=== PATIENT | female | born 1995 | race Hispanic/Latino ===

== ENCOUNTER 2018-02-02 03:55 | Emergency (ER) | payer OTHER ==
--- NOTE | 2018-02-02 04:58 | EDPHYS ---
Physician Documentation [facility] Name: Mary Blackwell Age: 22 yrs Sex: Female : 1995 Arrival Date: 02/02/2018 Time: 03:56 Bed 14 Private MD: ED Physician Sammy Gray HPI: 02/02 04:53 This 22 yrs old Female presents to ER via Ambulatory with complaints of Sore wa Throat, Fever, 6 Wks Preg. 04:53 The patient presents with sore throat. The patient describes throat pain as constant. wa Onset: The symptoms/episode began/occurred 3 day(s) ago. Severity of symptoms: At their worst the symptoms were moderate, in the emergency department the symptoms are actually worse. Modifying factors: The symptoms are alleviated by nothing, the symptoms are aggravated by swallowing. Associated signs and symptoms: Pertinent positives: chills, Pertinent negatives rhinorrhea, shortness of breath. The patient has not experienced similar symptoms in the past. The patient has not recently seen a physician. states 6 weeks preg. 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 - Social history:: Smoking status: Patient/guardian denies using tobacco. - Ebola Screening: : No symptoms or risks identified at this time. - Family history:: not pertinent. - Hospitalizations: : No recent hospitalization is reported. ROS: 04:54 Eyes: Negative for injury, pain, redness, and discharge, Neck: Negative for injury, wa pain, and swelling, Cardiovascular: Negative for chest pain, palpitations, and edema, Respiratory: Negative for shortness of breath, cough, wheezing, and pleuritic chest pain, Abdomen/GI: Negative for abdominal pain, nausea, vomiting, diarrhea, and constipation, Back: Negative for injury and pain, : Negative for injury, bleeding, discharge, and swelling, MS/Extremity: Negative for injury and deformity, Skin: Negative for injury, rash, and discoloration, Neuro: Negative for headache, weakness, numbness, tingling, and seizure, Psych: Negative for depression, anxiety, suicide ideation, homicidal ideation, and hallucinations. 04:54 Constitutional: Positive for body aches, chills. 04:54 ENT: Positive for sore throat, Negative for ear pain, rhinorrhea, sinus congestion. Exam: 04:55 Constitutional: This is a well developed, well nourished patient who is awake, alert, wa and in no acute distress. Head/Face: Normocephalic, atraumatic. Eyes: Pupils equal round and reactive to light, extra-ocular motions intact. Lids and lashes normal. Conjunctiva and sclera are non-icteric and not injected. Cornea within normal limits. Periorbital areas with no swelling, redness, or edema. Neck: Trachea midline, no thyromegaly or masses palpated, and no cervical lymphadenopathy. Supple, full range of motion without nuchal rigidity, or vertebral point tenderness. No Meningismus. Chest/axilla: Normal chest wall appearance and motion. Nontender with no deformity. No lesions are appreciated. Cardiovascular: Regular rate and rhythm with a normal S1 and S2. No gallops, murmurs, or rubs. Normal PMI, no JVD. No pulse deficits. Respiratory: Lungs have equal breath sounds bilaterally, clear to auscultation and percussion. No rales, rhonchi or wheezes noted. No increased work of breathing, no retractions or nasal flaring. Abdomen/GI: Soft, non-tender, with normal bowel sounds. No distension or tympany. No guarding or rebound. No evidence of tenderness throughout. Back: No spinal tenderness. No costovertebral tenderness. Full range of motion. Skin: Warm, dry with normal turgor. Normal color with no rashes, no lesions, and no evidence of cellulitis. MS/ Extremity: Pulses equal, no cyanosis. Neurovascular intact. Full, normal range of motion. Neuro: Awake and alert, GCS 15, oriented to person, place, time, and situation. Cranial nerves II-XII grossly intact. Motor strength 5/5 in all extremities. Sensory grossly intact. Cerebellar exam normal. Normal gait. Psych: Awake, alert, with orientation to person, place and time. Behavior, mood, and affect are within normal limits. 04:55 ENT: Posterior pharynx: erythema, exudate, that is mild. Vital Signs: 04:10 BP 115 / 87; Pulse 88; Resp 18; Temp 98.3(O); Pulse Ox 99% on R/A; Weight 58.97 kg; tl2 Height 5 ft. 5 in. (165.10 cm); Pain 7/10; 05:08 BP 99 / 73; Pulse 94; Resp 16; Temp 97.8(O); Pulse Ox 100% on R/A; tl2 04:10 Body Mass Index 21.63 (58.97 kg, 165.10 cm) tl2 MDM: 04:07 Patient medically screened. wa 04:55 Differential diagnosis: sore throat. possibly bacterial in origin. will treat wa empirically. Data reviewed: vital signs, nurses notes. Response to treatment: the patient's symptoms have markedly improved after treatment. Administered Medications: 05:08 Drug: Tylenol 500 mg Route: PO; tl2 05:11 Follow up: Response: No adverse reaction; Medication administered at discharge. tl2 05:08 Drug: Rocephin (cefTRIAXone) 1 grams Route: IM; Site: right gluteus; tl2 05:21 Follow up: Response: No adverse reaction jd3 Disposition: 02/02/18 04:57 Discharged to Home. Impression: Acute Pharyngitis. - Condition is Stable. - Discharge Instructions: Pharyngitis, [id number]. - Prescriptions for Augmentin 875- 125 mg Oral Tablet - take 1 tablet by ORAL route every 12 hours for 5 days; 10 tablet. - Medication Reconciliation Form, Thank You Letter, Antibiotic Education, Prescription Opioid Use form. - Follow up: Private Physician; When: 2 - 3 days; Reason: Recheck today's complaints. - Problem is new. - Symptoms have improved. - Notes: take tylenol for pain as needed. see your doctor for reassessment if your pain is not improved or worsen within 2-3 days Signatures: Evelyne Watson RN RN tl2 Sammy Gray MD MD wa Davies, Jonathon, RN RN jd3 Corrections: (The following items were deleted from the chart) 05:21 04:57 02/02/2018 04:57 Discharged to Home. Impression: Acute Pharyngitis. Condition is jd3 Stable. Forms are Medication Reconciliation Form, Thank You Letter, Antibiotic Education, Prescription Opioid Use. Follow up: Private Physician; When: 2 - 3 days; Reason: Recheck today's complaints. Problem is new. Symptoms have improved. [email or web address]
--- NOTE | 2018-02-02 04:58 | ER ---
Nurse's Notes [facility] Name: Mary Blackwell Age: 22 yrs Sex: Female : 1995 Arrival Date: 02/02/2018 Time: 03:56 Bed 14 Private MD: Diagnosis: Acute Pharyngitis Presentation: 02/02 04:08 Presenting complaint: Patient states: Vomiting and chills started on Monday, resolved. tl2 Sore throat since Monday with fever. Took Tylenol 30 minutes ago. Denies any abdominal cramping or vaginal bleeding. Transition of care: patient was not received from another setting of care. Onset of symptoms was January 30, 2018. Risk Assessment: Do you want to hurt yourself or someone else? Patient reports no desire to harm self or others. Initial Sepsis Screen: Does the patient meet any 2 criteria? No. Patient's initial sepsis screen is negative. Does the patient have a suspected source of infection? No. Patient's initial sepsis screen is negative. Care prior to arrival: None. 04:08 Method Of Arrival: Ambulatory tl2 04:08 Acuity: MILLICENT 4 tl2 Triage Assessment: 04:10 General: Appears in no apparent distress. uncomfortable, Behavior is calm, cooperative, tl2 appropriate for age. Pain: Complains of pain in throat Pain currently is 7 out of 10 on a pain scale. Quality of pain is described as sharp. EENT: Throat is reddened. Neuro: Level of Consciousness is awake, alert, obeys commands, Oriented to person, place, time, situation. Cardiovascular: Denies chest pain. Respiratory: Airway is patent Respiratory effort is even, unlabored, Respiratory pattern is regular, symmetrical. GI: Reports nausea. : Denies vaginal bleeding. Derm: Skin is pink, warm \T\ dry. 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 - Social history:: Smoking status: Patient/guardian denies using tobacco. - Ebola Screening: : No symptoms or risks identified at this time. - Family history:: not pertinent. - Hospitalizations: : No recent hospitalization is reported. Screenin:13 Abuse screen: Denies threats or abuse. Nutritional screening: No deficits noted. tl2 Tuberculosis screening: No symptoms or risk factors identified. Fall Risk None identified. Assessment: 04:13 General: see triage assessment. tl2 05:08 Reassessment: Patient appears in no apparent distress at this time. Patient and/or tl2 family updated on plan of care and expected duration. Pain level reassessed. Patient is alert, oriented x 3, equal unlabored respirations, skin warm/dry/pink. Pt verbalized understanding of discharge instructions, need for follow up and prescription usage. Will monitor for 15 minutes after Rocephin administration. Vital Signs: 04:10 BP 115 / 87; Pulse 88; Resp 18; Temp 98.3(O); Pulse Ox 99% on R/A; Weight 58.97 kg; tl2 Height 5 ft. 5 in. (165.10 cm); Pain 7/10; 05:08 BP 99 / 73; Pulse 94; Resp 16; Temp 97.8(O); Pulse Ox 100% on R/A; tl2 04:10 Body Mass Index 21.63 (58.97 kg, 165.10 cm) tl2 ED Course: 03:56 Patient arrived in ED. ds1 04:07 Sammy Gray MD is Attending Physician. wa 04:08 Evelyne Watson, DOROTHEA is Primary Nurse. tl2 04:10 Triage completed. tl2 04:10 Arm band placed on right wrist. tl2 04:13 Patient has correct armband on for positive identification. Bed in low position. Call tl2 light in reach. Side rails up X 1. Adult w/ patient. 05:08 No provider procedures requiring assistance completed. Patient did not have IV access tl2 during this emergency room visit. Administered Medications: 05:08 Drug: Tylenol 500 mg Route: PO; tl2 05:11 Follow up: Response: No adverse reaction; Medication administered at discharge. tl2 05:08 Drug: Rocephin (cefTRIAXone) 1 grams Route: IM; Site: right gluteus; tl2 05:21 Follow up: Response: No adverse reaction jd3 Outcome: 04:57 Discharge ordered by . il 05:08 Discharged to home ambulatory, with family. tl2 05:08 Condition: stable 05:08 Discharge instructions given to patient, Instructed on discharge instructions, follow up and referral plans. medication usage, Demonstrated understanding of instructions, follow-up care, medications, Prescriptions given X 1. 05:21 Patient left the ED. jd3 Signatures: Connie Rader ds1 Evelyne Watson, RN RN tl2 Sammy Gray MD MD wa Davies, Jonathon, RN RN jd3 Corrections: (The following items were deleted from the chart) 05:10 05:08 Reassessment: Patient appears in no apparent distress at this time. Patient tl2 and/or family updated on plan of care and expected duration. Pain level reassessed. Patient is alert, oriented x 3, equal unlabored respirations, skin warm/dry/pink. Pt verbalized understanding of discharge instructions, need for follow up and prescription usage tl2
[2018-02-02] MEDS ORDERED: WATER FOR INJ,STERILE 10 ML ONE (05:04)
[2018-02-02] MEDS ORDERED: CEFTRIAXONE 1000 MG/VIAL ONE (05:04)
[2018-02-02] MEDS ORDERED: ACETAMINOPHEN 500 MG TAB ONE (05:04)
[2018-02-02 05:29] VITALS: BP 99/73; TEMP 97.8; O2SAT 100
== END 2018-02-02 05:21 | disposition home or self-care (01) ==
LOC: ER 03:55
DX: J02.9 Acute pharyngitis, unspecified (principal)
CPT/HCPCS: 96372; 99283

== ENCOUNTER 2018-09-11 21:16 | Emergency (ER) | payer OTHER ==
--- NOTE | 2018-09-11 22:05 | ER ---
Nurse's Notes [facility] Name: Mary Blackwell Age: 23 yrs Sex: Female : 1995 Arrival Date: 09/11/2018 Time: 21:20 Bed 2 Private MD: Diagnosis: Dizziness and giddiness;Hyperventilation; related conditions, unspecified, third trimester Presentation: 09/11 21:55 Presenting complaint: Patient states: She was cleaning around the house when she lp1 suddenly became light headed, felt like she was going to pass out, numbness in hands, blurred vision; Patient is 39 weeks ; States symptoms have resolved at this time, but continues to have headache. Transition of care: patient was not received from another setting of care. Onset of symptoms was September 11, 2018. Risk Assessment: Do you want to hurt yourself or someone else? Patient reports no desire to harm self or others. Initial Sepsis Screen: Does the patient meet any 2 criteria? No. Patient's initial sepsis screen is negative. Does the patient have a suspected source of infection? No. Patient's initial sepsis screen is negative. Care prior to arrival: None. 21:55 Method Of Arrival: Ambulatory lp1 21:55 Acuity: MILLICENT 3 lp1 Historical: - Allergies: 21:56 No Known Allergies; lp1 - Home Meds: 21:56 None [Active]; lp1 - PMHx: 21:56 None; lp1 - PSHx: 21:56 None; lp1 - Immunization history:: Adult Immunizations up to date. - Social history:: Smoking status: Patient/guardian denies using tobacco. - Ebola Screening: : No symptoms or risks identified at this time. - Family history:: not pertinent. Screenin:00 Abuse screen: Denies threats or abuse. Denies injuries from another. Nutritional aa1 screening: No deficits noted. Tuberculosis screening: No symptoms or risk factors identified. Fall Risk None identified. Assessment: 22:00 General: Appears in no apparent distress. comfortable, Behavior is calm, cooperative, aa1 appropriate for age. Pain: Denies pain. Neuro: Level of Consciousness is awake, alert, obeys commands, Oriented to person, place, time, situation, Moves all extremities. 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 Cardiovascular: Denies chest pain, lightheadedness, shortness of breath, Heart tones S1 S2 present Rhythm is regular. Respiratory: Airway is patent Respiratory effort is even, unlabored, Respiratory pattern is regular, symmetrical. GI: No signs and/or symptoms were reported involving the gastrointestinal system. : No signs and/or symptoms were reported regarding the genitourinary system. EENT: No signs and/or symptoms were reported regarding the EENT system. Derm: Skin is intact, is healthy with good turgor, Skin is pink, warm \T\ dry. Musculoskeletal: Circulation, motion, and sensation intact. Capillary refill < 3 seconds. 22:23 Reassessment: Patient appears in no apparent distress at this time. Patient is alert, aa1 oriented x 3, equal unlabored respirations, skin warm/dry/pink. Discussed d/c \T\ f/u instructions with pt \T\ spouse; denies questions or concerns at this time Patient denies pain at this time. Vital Signs: 21:53 BP 110 / 89; Pulse 70; Resp 18; Pulse Ox 100% on R/A; Weight 65.77 kg; Height 5 ft. 2 lp1 in. (157.48 cm); Pain 0/10; 21:53 BP 113 / 83 Supine; Pulse 66; lp1 21:53 BP 119 / 81 Sitting; Pulse 67; lp1 21:53 BP 105 / 80 Standing; Pulse 91; lp1 21:53 Temp 98.1; aa1 21:53 Body Mass Index 26.52 (65.77 kg, 157.48 cm) lp1 Vitals: 22:10 Heart Tones 156. aa1 ED Course: 21:20 Patient arrived in ED. ds1 21:35 Russel Last MD is Attending Physician. rola 21:56 Triage completed. lp1 21:56 Arm band placed on left wrist. lp1 22:00 Patient has correct armband on for positive identification. Bed in low position. Call aa1 light in reach. Pulse ox on. NIBP on. 22:01 Aracelis Presley RN is Primary Nurse. aa1 22:05 Diet: Patient given juice. Tolerated well. aa1 22:23 No provider procedures requiring assistance completed. Patient did not have IV access aa1 during this emergency room visit. Administered Medications: No medications were administered Outcome: 22:04 Discharge ordered by . rola 22:23 Discharged to home ambulatory, with significant other. aa1 22:23 Condition: good 22:23 Discharge instructions given to patient, significant other, Instructed on discharge instructions, follow up and referral plans. Demonstrated understanding of instructions, follow-up care. 22:25 Patient left the ED. aa1 Signatures: Aracelis Presley RN RN aa1 Russel Last MD MD cha Sanford, Demi ds1 Maxine Malone, DOROTHEA RN lp1
--- NOTE | 2018-09-11 22:06 | EDPHYS ---
Physician Documentation [facility] Name: Mary Blackwell Age: 23 yrs Sex: Female : 1995 Arrival Date: 09/11/2018 Time: 21:20 Bed 2 Private MD: ED Physician Russel Last HPI: 09/11 21:57 This 23 yrs old Female presents to ER via Ambulatory with complaints of rola Dizziness, Numbness Of Hand, Blurred Vision, 38 Wks Preg. 21:57 The patient presents with dizziness. Onset: The symptoms/episode began/occurred just rola prior to arrival. Context: occurred at home. Modifying factors: The symptoms are alleviated by lying down, the symptoms are aggravated by standing up, changing position. Associated signs and symptoms: Pertinent positives: blurred vision, tingling. Severity of symptoms: At their worst the symptoms were mild moderate in the emergency department the symptoms have improved markedly. Patient's baseline: Neuro: alert and fully oriented. The patient has experienced similar episodes in the past, a few times. Historical: - Allergies: 21:56 No Known Allergies; lp1 - Home Meds: 21:56 None [Active]; lp1 - PMHx: 21:56 None; lp1 - PSHx: 21:56 None; lp1 - Immunization history:: Adult Immunizations up to date. - Social history:: Smoking status: Patient/guardian denies using tobacco. - Ebola Screening: : No symptoms or risks identified at this time. - Family history:: not pertinent. ROS: 21:57 Constitutional: Negative for fever, chills, and weight loss, Eyes: Negative for injury, rola pain, redness, and discharge, ENT: Negative for injury, pain, and discharge, Neck: Negative for injury, pain, and swelling, Cardiovascular: Negative for chest pain, palpitations, and edema, Respiratory: Negative for shortness of breath, cough, wheezing, and pleuritic chest pain, Abdomen/GI: Negative for abdominal pain, nausea, vomiting, diarrhea, and constipation, Back: Negative for injury and pain, Skin: Negative for injury, rash, and discoloration, Neuro: Negative for headache, weakness, numbness, tingling, and seizure, Psych: Negative for depression, anxiety, suicide ideation, homicidal ideation, and hallucinations, Allergy/Immunology: Negative for hives, rash, and allergies, Endocrine: Negative for neck swelling, polydipsia, polyuria, polyphagia, and marked weight changes. 21:57 Abdomen/GI: Positive for abdominal distension. 21:57 : Positive for 21:57 MS/extremity: Negative for acute changes. Exam: 21:57 Constitutional: This is a well developed, well nourished patient who is awake, alert, rola and in no acute distress. Head/Face: Normocephalic, atraumatic. Eyes: Pupils equal round and reactive to light, extra-ocular motions intact. Lids and lashes normal. Conjunctiva and sclera are non-icteric and not injected. Cornea within normal limits. Periorbital areas with no swelling, redness, or edema. ENT: Nares patent. No nasal discharge, no septal abnormalities noted. Tympanic membranes are normal and external auditory canals are clear. Oropharynx with no redness, swelling, or masses, exudates, or evidence of obstruction, uvula midline. Mucous membranes moist. Neck: Trachea midline, no thyromegaly or masses palpated, and no cervical lymphadenopathy. Supple, full range of motion without nuchal rigidity, or vertebral point tenderness. No Meningismus. Chest/axilla: Normal chest wall appearance and motion. Nontender with no deformity. No lesions are appreciated. Cardiovascular: Regular rate and rhythm with a normal S1 and S2. No gallops, murmurs, or rubs. Normal PMI, no JVD. No pulse deficits. Respiratory: Lungs have equal breath sounds bilaterally, clear to auscultation and percussion. No rales, rhonchi or wheezes noted. No increased work of breathing, no retractions or nasal flaring. Back: No spinal tenderness. No costovertebral tenderness. Full range of motion. Female : Normal external genitalia. Skin: Warm, dry with normal turgor. Normal color with no rashes, no lesions, and no evidence of cellulitis. MS/ Extremity: Pulses equal, no cyanosis. Neurovascular intact. Full, normal range of motion. Neuro: Awake and alert, GCS 15, oriented to person, place, time, and situation. Cranial nerves II-XII grossly intact. Motor strength 5/5 in all extremities. Sensory grossly intact. Cerebellar exam normal. Normal gait. Psych: Awake, alert, with orientation to person, place and time. Behavior, mood, and affect are within normal limits. 21:57 Abdomen/GI: Inspection: gravid appearance, Liver: no appreciated palpable abnormalities, Hernia: not appreciated. 22:04 Musculoskeletal/extremity: DVT Exam: No signs of deep vein thrombosis. no pain, no rola swelling, no tenderness, negative Homans' sign noted on exam, no appreciated bluish discoloration, no erythema, no increased warmth. Vital Signs: 21:53 BP 110 / 89; Pulse 70; Resp 18; Pulse Ox 100% on R/A; Weight 65.77 kg; Height 5 ft. 2 lp1 in. (157.48 cm); Pain 0/10; 21:53 BP 113 / 83 Supine; Pulse 66; lp1 21:53 BP 119 / 81 Sitting; Pulse 67; lp1 21:53 BP 105 / 80 Standing; Pulse 91; lp1 21:53 Temp 98.1; aa1 21:53 Body Mass Index 26.52 (65.77 kg, 157.48 cm) lp1 MDM: 21:35 Patient medically screened. [facility] 21:57 Data reviewed: vital signs, nurses notes, lab test result(s), urinalysis. [facility] 09/11 22:07 Order name: Urine Dipstick--Ancillary (enter results) ag4 09/11 21:57 Order name: FHT's; Complete Time: 22:11 [facility] 09/11 21:57 Order name: Urine Dipstick-Ancillary (obtain specimen); Complete Time: 22:01 [facility] 09/11 21:57 Order name: Orthostatics; Complete Time: 22:01 [facility] 09/11 21:57 Order name: PO challenge; Complete Time: 22:01 [facility] Administered Medications: No medications were administered Disposition: 09/11/18 22:04 Discharged to Home. Impression: Dizziness and giddiness, Hyperventilation, related conditions, unspecified, third trimester. - Condition is Stable. - Discharge Instructions: Dizziness, Hyperventilation, Third Trimester of , Cuwi-pt-Uxks, Dizziness, [id number]. - Medication Reconciliation Form, Thank You Letter, Antibiotic Education, Prescription Opioid Use form. - Follow up: Private Physician; When: 2 - 3 days; Reason: Recheck today's complaints, Continuance of care, Re-evaluation by your physician. - Problem is new. - Symptoms have improved. Signatures: Dispatcher [employer] EDAracelis Shannon RN RN aa1 Russel Last MD MD cha Pena, Laura RN RN lp1 Corrections: (The following items were deleted from the chart) 22:25 22:04 09/11/2018 22:04 Discharged to Home. Impression: Dizziness and giddiness; aa1 Hyperventilation; related conditions, unspecified, third trimester. Condition is Stable. Discharge Instructions: Dizziness, Hyperventilation, Third Trimester of , Weqe-oc-Micm, Dizziness, [id number]. Forms are Medication Reconciliation Form, Thank You Letter, Antibiotic Education, Prescription Opioid Use. Follow up: Private Physician; When: 2 - 3 days; Reason: Recheck today's complaints, Continuance of care, Re-evaluation by your physician. Problem is new. Symptoms have improved. rola
[2018-09-11 22:12] LABS: Urine Blood NEGATIVE (NEG); Urine Glucose NEGATIVE (NEG); Urine Protein NEGATIVE (NEG); Urine Specific Gravity 1.005 (1.005-1.030); Urine pH 6.5 (5.0-7.0)
[2018-09-11 22:45] VITALS: BP 105/80; TEMP 98.1; O2SAT 100
== END 2018-09-11 22:25 | disposition home or self-care (01) ==
LOC: ER 21:16
DX: O26.893 Other specified pregnancy related conditions, third trimester (principal); R42 Dizziness and giddiness; R06.4 Hyperventilation; Z3A.38 38 weeks gestation of pregnancy
CPT/HCPCS: 81003; 99283

== ENCOUNTER 2018-09-17 07:00 | Inpatient (IN) | payer OTHER ==
[2018-09-17] MEDS ORDERED: Ringers Lactate 1,000 ML IV PRN (07:09)
[2018-09-17] MEDS ORDERED: CARBOPROST TROME 250 MCG/ML IM PRN (07:09)
[2018-09-17] MEDS ORDERED: METHYLERGONOVINE 0.2MG/ML AMP IM PRN (07:09)
[2018-09-17] MEDS ORDERED: PROMETHAZINE 25 MG/ML VIAL IV PRN ×2 (07:09)
[2018-09-17] MEDS ORDERED: BUTORPHANOL 1 MG/ML INJ IV PRN (07:09)
[2018-09-17] MEDS ORDERED: PENICILLIN G POT 5 MU/100 ML BAG IV ONE (07:30)
[2018-09-17 07:51] LABS: RPR Titer ND
[2018-09-17 07:53] LABS: Urine Appearance CLOUDY; Urine Bilirubin NEGATIVE (NEG); Urine Blood NEGATIVE (NEG); Urine Color YELLOW; Urine Glucose NEGATIVE (NEG); Urine Protein NEGATIVE (NEG); Urine Specific Gravity 1.025 (1.005-1.030); Urine pH 6.5 (5.0-7.0)
[2018-09-17 07:58] LABS: Absolute Lymphocytes (CBC) 1.8 K/uL (0.7-4.9); Absolute Monocytes 0.4 K/uL (0.1-1.3); Absolute Neutrophil 4.8 K/uL (1.8-8.0); Basophils % 0.4 % (0-1.3); Eosinophils % 1.4 % (0-4.4); Hematocrit 28.6 % (36.0-45.0); Lymphocytes % 24.9 % (15.3-44.8); MPV 9.7 fL (7.6-11.3); Monocytes % 5.3 % (3.3-12.3); RBC Red Blood Cell Count 3.73 M/uL (3.86-4.86)
[2018-09-17] MEDS ORDERED: Ringers Lactate 1,000 ML IV SCH (08:00)
[2018-09-17] MEDS ORDERED: OXYTOCIN/LR 20 UNIT/1,000 ML BAG IV SCH (08:00)
[2018-09-17 08:01] LABS: Urine Microscopic Reflex ORDER UMIC
[2018-09-17 08:23] LABS: Urine Bacteria 20-50 /HPF (<20); Urine Culture Reflex Order NOT NEEDED; Urine RBC <5 /HPF (NONE SEEN)
[2018-09-17 08:56] VITALS: BMI 26.5
[2018-09-17] MEDS ORDERED: PENICILLIN 2.5 MU in NA CHLORIDE 0.9% 100 ML IV SCH (11:30)
[2018-09-17] MEDS ORDERED: LIDOCAINE 1% MPF 30 ML VIAL ONE (15:24)
[2018-09-17] MEDS ORDERED: ONDANSETRON 4 MG (ODT) TAB PO PRN (15:28)
[2018-09-17] MEDS ORDERED: DOCUSATE NA/SENNA CONC 1 TAB PO PRN (15:28)
[2018-09-17] MEDS ORDERED: ACETAMINOPHEN 500 MG TAB PO PRN (15:28)
[2018-09-17] MEDS ORDERED: BISACODYL 10 MG RECTAL SUPP RECT PRN (15:28)
[2018-09-17] MEDS ORDERED: Oxycodone HCl/Acetaminophen 1 TAB TAB PO PRN (15:28)
[2018-09-17] MEDS ORDERED: METHYLERGONOVINE 0.2 MG TAB PO PRN (15:28)
[2018-09-17] MEDS ORDERED: OXYTOCIN/LR 20 UNIT/1,000 ML BAG IV ONE (17:51)
[2018-09-17] MEDS ORDERED: Ringers Lactate 2,000 ML IV ONE (18:07)
[2018-09-17] MEDS ORDERED: KETOROLAC 30 MG/ML INJ IV PRN (18:20)
[2018-09-17] MEDS ORDERED: ONDANSETRON 4 MG/2 ML VIAL IV PRN (18:20)
[2018-09-17] MEDS ORDERED: KETOROLAC 30 MG/ML INJ ONE (18:34)
[2018-09-17] MEDS ORDERED: ONDANSETRON 4 MG/2 ML VIAL ONE (18:35)
--- NOTE | 2018-09-17 20:20 | P.OBGYNHP ---
Certification for Inpatient Patient admitted to: Inpatient With expected LOS: <2 Midnights Patient will require the following post-hospital care: None Practitioner: I am a practitioner with admitting privileges, knowledge of patient current condition, hospital course, and medical plan of care. Services: Services provided to patient in accordance with Admission requirements found in Title 42 Section 412.3 of the Code of Federal Regulations Patient History Date of Service: 09/17/18 Reason for admission: Induction of labor History of Present Illness: Patient is a 23 y/o at 39 weeks and 1 day gestation who presents for elective indcution of labor. Patient has obtained prental care wiht nh beginning at 8 weeks gestation. care is complicated by anemia. Non- invasive testing revealed low risk female infant. She has been non- compliant with her prental vitmains and iron supplementation. She has a h/o 4 prior vaginal deliveries. Allergies No Known Allergies Allergy (Verified 09/17/18 08:39) Home Medications: Vits W-Ca,Fe,FA(<1Mg) [] 1 each PO DAILY 09/26/11 - Past Medical/Surgical History Diabetic: No -: Anemia -: Vaginal Deliveries - 09/05/10, 09/26/11, and 05/22/15, 01/2017 - Family History Father -: Hypertension, Other (see notes) Notes: Thyroid problems - Social History Smoking Status: Never smoker Alcohol use: No CD- Drugs: No Caffeine use: Yes Place of Residence: Home Review of Systems 10-point ROS is otherwise unremarkable Physical Examination - Vital Signs Temperature: 97.3 F Blood Pressure: 117/71 Pulse: 75 Respirations: 18 - General General: Alert, Oriented x3, Mild distress HEENT: Atraumatic Neck: Supple Respiratory: Normal air movement Cardiovascular: No edema, Normal pulses Breasts: Normal configuration Musculoskeletal: No clubbing, No swelling Integumentary: No rashes, No breakdown Neurological: Normal gait, Normal speech - Female Pelvic External genitalia: Normal Vagina: Normal, [place], Moist Cervix: Dilation (3), Effacement (60), station (-3) Uterus: Gravid Adnexa: Unable to evaluate - Obstetrics heart rate tracing: Category 2 Contractions: Frequency (every 3-4 minutes) Amniotic membrane: AROM (clear fluid) Laboratory Data (last 24 hrs) 09/17/18 18:45: Hct 31.6 L 09/17/18 07:30: WBC 7.0, Hgb 9.2 L, Hct 28.6 L, Plt Count 139 L Microbiology Data (last 24 hrs): GBS positive Assessment and Plan - Plan Patient is a 23 y/o at 39 weeks and 1 day gestation who presents for elective induction of labor. GBS positive. Penicillin has been started for prophylaxis. Pitocin for labor augmentation. Patient declines epidural. Anticipate vaginal delivery. Continuous maternal monitoring. Discharge Plan: Home Plan to discharge in: 48 Hours - Advance Directives Does patient have a Living Will: No Does patient have a Durable POA for Healthcare: No
--- NOTE | 2018-09-17 20:45 | P.OP ---
Date of Service: 09/17/18 Findings and Operative Technique Patient delivered a viable female in cephalic presentation on 09/17/17 at . Once was delivered nose and mouth were suctioned with a suction bulb. Cord was clamped and cut and was placed on mother's abdomen for skin to skin bonding. Cord blood was then obtained. Placenta was then delivered with gentle traction and was examined and noted to be intact. Fundal massage was performed and uterus was found to be firm. A small laceration was noted at the introitus and this was repaired with a simple 3.0 vicryl suture. EBL was found to be 300cc. APGARS were 9/9 Weight was found to be 7 lb 7 ounces. Penicillin was given. First stage of labor was 6 hours and 10 minutes. Second stage of labor was 9 minutes. Both mom and baby are doing well. She is breast feeding.
[2018-09-18 01:12] LABS: RPR (Rapid Plasma Reagin) NON-REACT (NON-REACT)
[2018-09-18 04:53] LABS: Absolute Lymphocytes (CBC) 1.6 K/uL (0.7-4.9); Absolute Monocytes 0.9 K/uL (0.1-1.3); Basophils % 0.2 % (0-1.3); Eosinophils % 0.3 % (0-4.4); Hematocrit 23.3 % (36.0-45.0); Lymphocytes % 13.6 % (15.3-44.8); MPV 10.3 fL (7.6-11.3); Monocytes % 8.1 % (3.3-12.3); RBC Red Blood Cell Count 3.02 M/uL (3.86-4.86)
[2018-09-18] MEDS: IBUPROFEN 200 MG TAB PO PRN ×2 (05:16→11:45)
[2018-09-18 16:41] VITALS: BP 105/78; TEMP 97.6
[2018-09-21 19:45] LABS: HBsAG Nonreactive (Nonreactive)
== END 2018-09-18 17:30 | disposition home or self-care (01) | DRG 807 ==
LOC: 2ND-WC 07:00
PROVIDERS: ADMIT Student in an Organized Health Care Education/Training Program; ATTEND Student in an Organized Health Care Education/Training Program
PROC: 10E0XZZ Delivery of Products of Conception, External Approach (ICD-10-PCS; principal; 2018-09-17)
PROC: 10907ZC Drainage of Amniotic Fluid, Therapeutic from Products of Conception, Via Natural or Artificial Opening (ICD-10-PCS; 2018-09-17)
PROC: 0UQMXZZ Repair Vulva, External Approach (ICD-10-PCS; 2018-09-17)
DX: O99.824 Streptococcus B carrier state complicating childbirth (principal); Z37.0 Single live birth; O70.0 First degree perineal laceration during delivery; O99.02 Anemia complicating childbirth; Z3A.39 39 weeks gestation of pregnancy
CPT/HCPCS: 36415; 81003; 81015; 85014; 85025; 86592; 86850; 86900; 86901; 87340; J2210; J2405; J2590